=== PATIENT | female | born 1985 | race Two or more races ===

== ENCOUNTER → 2018-08-31 | Outpatient (CLI) | payer OTHER ==
--- NOTE | 2018-08-31 10:15 | RAD ---
Left breast ultrasound, 08/31/2018: History: Abnormal outside ultrasound, planned biopsy An outside ultrasound study described a suspicious nodule at the 6:00 location in the left breast. Today's targeted ultrasound exam was performed in preparation for a planned ultrasound guided biopsy. The 6:00 location was carefully scanned. Normal heterogeneous fibroglandular shadows are present. No mass is identified. The patient cannot currently pinpoint a palpable mass. The findings suggest that the nodule may have resolved in the two-month interval, or the outside ultrasound may have demonstrated a "pseudolesion". There is currently no target for ultrasound-guided biopsy. Clinical surveillance is suggested, with follow-up imaging as clinically indicated.
== END | disposition home or self-care (01) ==
LOC: EDUNIT# 09:00 → US 10:46
PROVIDERS: ATTEND Surgery
DX: N63.24 Unspecified lump in the left breast, lower inner quadrant (principal)
CPT/HCPCS: 76641